=== PATIENT | male | born 1955 | race Caucasian/White ===

== ENCOUNTER 2024-08-29 08:04 | Emergency (ER) | payer OTHER ==
[2024-08-29 09:40] LABS: Absolute Lymphocytes (CBC) 0.6 K/uL (0.7-4.9); Absolute Monocytes 0.8 K/uL (0.1-1.3); Absolute Neutrophil 13.3 K/uL (1.8-8.0); Eosinophils % 0.2 % (0-4.4); Hematocrit 47.3 % (39.6-49.0); Hemoglobin 15.2 g/dL (13.6-17.9); MCV 84.2 fL (80-100); MPV 7.7 fL (7.6-11.3); Monocytes % 5.5 % (3.3-12.3); Neutrophils % 90.3 % (41.7-73.7); Platelets 200 thou/uL (152-406); RBC Red Blood Cell Count 5.62 M/uL (4.33-5.43); Red Cell Distribution Width 15.8 % (12.1-15.2)
[2024-08-29 09:48] LABS: SARS-CoV-2 Antigen CONTROL BLUE LINE VIS/BG OK; SARS-CoV-2 Antigen Rapid Res Negative (Negative)
[2024-08-29 09:54] LABS: Albumin 3.7 g/dL (3.4-5.0); Albumin/Globulin Ratio 0.8 (1.1-1.8); Anion Gap 10.2 mEq/L (5.0-15.0); Bilirubin Total 0.7 mg/dL (0.2-1.0); Globulin 4.4 g/dL (2.3-3.5); Potassium 4.2 mEq/L (3.5-5.1); Protein, Total 8.1 g/dL (6.4-8.2)
--- NOTE | 2024-08-29 10:09 | RAD REPORT ---
EXAM: Chest Single View HISTORY: COUGH COMPARISON: None. FINDINGS: LUNGS/PLEURA: The lungs are clear. No pleural effusions or pneumothorax. No pulmonary edema. MEDIASTINUM: The mediastinal silhouette is within normal limits. CARDIAC: The cardiac silhouette is within normal limits. UPPER ABDOMEN: No significant abnormality. BONES: No acute fracture. LINES/TUBES/OTHER: N/A IMPRESSION: No evidence of acute cardiopulmonary disease.
[2024-08-29] MEDS ORDERED: ONDANSETRON 4 MG/2 ML VIAL ONE (10:47)
[2024-08-29] MEDS ORDERED: NA CHLORIDE 0.9% 1,000 ML ONE (10:48)
[2024-08-29 10:54] LABS: Band Neutrophils 5 % (0-1); Blood Morphology Comment NOT SEEN (NOT SEEN); Differential Total Cells Count 100; Lymphocytes 4 % (15-42); Monocytes 9 % (0-10); Platelet Estimate ADEQ; Segmented Neutrophils 82 % (40-80)
--- NOTE | 2024-08-29 11:09 | RAD REPORT ---
EXAMINATION: CT ABDOMEN AND PELVIS WITH CONTRAST CLINICAL INDICATION: Male, 69 years old.pain TECHNIQUE: CT abdomen and pelvis was performed, after the administration of IV contrast, as [facility]. Axial, sagittal and coronal reconstructions were obtained. One or more of the following dose reduction techniques were used: Automated exposure control, adjustment of the mA and/o r kV according to patient size, and/or iterative reconstruction. Unless otherwise specified, incidental findings do not require dedicated imaging follow-up. [id number]. COMPARISON: No prior exam. FINDINGS: LOWER CHEST: The visualized lung bases are clear. LIVER: Normal in size and contour. No focal lesion. GALLBLADDER/BILE DUCT: Cholecystomy. Pneumobilia present. The common bile duct enhances.? PANCREAS: No significant abnormality. SPLEEN: Normal size. No focal lesion. ADRENALS: 15 mm indeterminate right adrenal nodule. Adrenal Incidental Indeterminate, CT W/C, > 1 - 2 cm, < 130 HU, Homogeneous: Contrast portal venous phase CT, Incidental Indeterminate Adrenal Mass > 1 - 2 cm, < 130 HU, Homogeneous: Probable benign adenoma. Recommend 1 year follow up adrenal washou t CT. If stable for > 1 year, no further f/u imaging. These guidelines do not apply to patients younger than 18 years, patients with cancer, and patients w ith any clinical suspicion of a functioning adrenal lesion. Reference: JACR 2017 Apr; 14(8):1038-44, JCAT 2016 Nov-Dec; 40(2):194-200 KIDNEYS AND URETERS: 2.8 cm right lower pole renal lesion which is slightly lobular. It has Hounsfiel d units just above that of simple fluid. Other too small to characterize renal lesions are noted. GASTROINTESTINAL TRACT: Bowel containing right lateral ventral hernia. No bowel obstruction. There is fluid and mild wall thickening and enhancement of the colon which may reflect a mild enterocolitis. No bowel obstruction. Scattered colonic diverticula. No diverticulitis. PERITONEUM: No ascites. Fat-containing ventral hernias. LYMPH NODES: No lymphadenopathy. 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 URINARY BLADDER: Normal contour. REPRODUCTIVE ORGANS: No pathologic process MUSCULOSKELETAL: No acute or suspicious osseous abnormality. Grade 1 anterolisthesis of L4 and L5 wit h pars defects. Trace retrolisthesis of L5 on S1. ADDITIONAL FINDINGS: None. IMPRESSION: 1. Pneumobilia with enhancement of the common bile duct. The patient has had a prior cholecystomy. Th is could be from a prior sphincterotomy. Cholangitis is another consideration. Recommend clinical correlation and correlation with patient history. 2. Mild colitis suspected. 3. Incidentally identified right adrenal nodule. See above. 4. Indeterminate right lower pole renal lesion. Nonemergent renal ultrasound suggested for further ev aluation.
[2024-08-29] MEDS ORDERED: NA CHLORIDE 0.9% 100 ML ONE (11:21)
[2024-08-29] MEDS ORDERED: PIPERACIL/TAZO 3.375 GM VIAL IV ONE (11:22)
--- NOTE | 2024-08-29 11:53 | ER ---
Nurse's Notes [facility] Name: Marlon Ta Age: 69 yrs Sex: Male : 1955 Arrival Date: 08/29/2024 Time: 08:04 Bed 2 Private MD: Diagnosis: Toxic gastroenteritis and colitis;Sepsis, unspecified organism;History of Liver Transplant 2018;Pneumobilia Presentation: 08/29 08:26 Chief complaint: Patient states: body aches with nausea, vomiting, diarrhea since last aa5 night. Risk Assessment: Do you want to hurt yourself or someone else? Patient reports no desire to harm self or others. Onset of symptoms was August 2024. 08:26 Acuity: RON 3 aa5 08:26 Method Of Arrival: Ambulatory aa5 08:26 Coronavirus screen: diarrhea, vomiting. Ebola Screen: [facility] denies [facility] to an [facility] in the 21 days before illness onset. Initial Sepsis Screen: Does the patient meet any 2 criteria? HR > 90 bpm. Does the patient have a suspected source of infection? No. Patient's initial sepsis screen is negative. Historical: - Allergies: 08:24 No Known Allergies; aa5 - PMHx: 08:24 Liver transplant January 2018; aa5 08:24 Depressive disorder; Hypertensive disorder; aa5 - Immunization history:: Adult Immunizations unknown. - Infectious Disease History:: Denies. - Social history:: Smoking status: Patient/guardian denies using tobacco. Screenin:09 [facility] ED Fall Risk Assessment (Adult) History of falling in the last 3 months, ap3 including since admission No falls in past 3 months (0 pts) Confusion or Disorientation No (0 pts) Intoxicated or Sedated No (0 pts) Impaired Gait No (0 pts) Mobility Assist Device Used No (0 pt) Altered Elimination No (0 pt) Score/Fall Risk Level 0 - 2 = Low Risk Oriented to surroundings, Maintained a safe environment, Educated pt \T\ family on fall prevention, incl call for assistance when getting out of bed, Assessed \T\ reinforced patient's understanding of fall precautions, Hourly rounding (assess needs \T\ fall precautionary measures) done, Used ambulatory aids as needed (educated on \T\ assisted with), Used gait belt as appropriate. Abuse screen: Denies threats or abuse. Nutritional screening: No deficits noted. Tuberculosis screening: No symptoms or risk factors identified. Assessment: 11:09 General: Appears ill, Behavior is calm, cooperative, appropriate for age, Reports ap3 chills for fever for feeling ill for. Pain: Denies pain. Neuro: Level of Consciousness is awake, alert, obeys commands, Oriented to person, place, time, situation, Appropriate for age. Cardiovascular: Patient's skin is warm and dry. Respiratory: Airway is patent Respiratory effort is even, unlabored, Respiratory pattern is regular, symmetrical. GI: Reports diarrhea, nausea, vomiting. 12:30 Reassessment: No changes from previously documented assessment. Patient and/or family ap3 updated on plan of care and expected duration. Pain level reassessed. 13:42 Reassessment: No changes from previously documented assessment. Patient and/or family ap3 updated on plan of care and expected duration. Pain level reassessed. 14:36 General: attempted to call report to [facility], was asked to return call in approx 20 ap3 minutes as the room has not been cleaned yet. 15:33 General: Appears comfortable, Behavior is calm, cooperative, appropriate for age. ap3 Neuro: Level of Consciousness is awake, alert, obeys commands, Oriented to person, place, time, situation, Appropriate for age. Cardiovascular: Patient's skin is warm and dry. Respiratory: Airway is patent Respiratory effort is even, unlabored, Respiratory pattern is regular, symmetrical. 15:45 Reassessment: EMS AT B/S FOR TRANSPORT. bp Vital Signs: 08:26 BP 135 / 86; Pulse 92; Resp 19 S; Temp 98.2(TE); Pulse Ox 95% on R/A; Weight 107.95 kg aa5 (R); Height 5 ft. 11 in. (R); 11:08 BP 144 / 69; Pulse 93; Resp 18; Pulse Ox 96% on R/A; ap3 14:58 Pulse 91; Pulse Ox 93% on 2 lpm NC; ap3 15:45 BP 148 / 75; Pulse 89; Resp 16; Pulse Ox 97% ; bp 08:26 Body Mass Index 33.19 (107.95 kg, 180.34 cm) aa5 ED Course: 08:11 Patient arrived in ED. mg5 08:24 Arm band placed on. aa5 08:26 Triage completed. aa5 09:00 Doan, Abebe, MD is Attending Physician. ec2 09:29 SARS RAPID Sent. bc6 09:29 Influenza Screen (a \T\ B) Sent. bc6 : CBC with Diff Sent. bc6 09: CMP Sent. bc6 09: Lipase Sent. bc6 :29 Initial lab(s) drawn, by me, sent to lab. COVID swab sent to lab. Flu and/or RSV swab bc6 sent to lab. Inserted saline lock: 20 gauge in left antecubital area, using aseptic technique. Blood collected. Flushed with 10 mL NS. 09:46 CXR XRAY In Process Unspecified. EDMS 10:01 Young Owens, RN is Primary Nurse. bp 10:18 Radiology exam delayed due to pt not in lobby or in room 2. Told Fidelia to call when he sj is found. 10:56 Abdomen In Process Unspecified. EDMS 11:10 Patient has correct armband on for positive identification. Bed in low position. Call ap3 light in reach. Side rails up X2. Adult w/ patient. Provided Education on: call light education. Pulse ox on. NIBP on. 11:36 Repeat lab(s) drawn. by me, sent to lab. First set of blood cultures drawn by me, bp Second set of blood cultures drawn by me. 12:27 initiated transfer to [facility]. bd 12:50 doc to doc. bd 14:24 pt accepted in transfer to [facility] rm [address] redman admin approval given by Gardenia Vega rn. 15:23 report given to RICO Tam at [facility]. ap3 15:23 No provider procedures requiring assistance completed. ap3 16:10 Patient transferred, IV remains in place. ap3 Administered Medications: 09:19 CANCELLED (Physician Discretion): TORadol - [id number] mg IVP once ec2 11:05 Drug: NS 0.9% IV 1000 ml IV at 1 bolus Per protocol; to be given as a bolus over 60 ap3 minutes Route: IV; Rate: 1 bolus; Site: left antecubital; 12:05 Follow up: IV Status: Completed infusion ap3 11:08 Drug: Ondansetron IVP 4 mg IVP once; over 2 minutes Route: IVP; Site: left antecubital; ap3 14:56 Follow up: Response: No adverse reaction ap3 11:36 Drug: Piperacillin-Tazobactam IVPB 3.375 grams IVPB once over 60 mins; (mix in NS 100 bp mL) Route: IVPB; Infused Over: 60 mins; Site: left antecubital; 14:56 Follow up: IV Status: Completed infusion ap3 12:09 Drug: metoCLOPramide IVP 10 mg IVP once; over 1 to 2 minutes Route: IVP; Site: left ap3 antecubital; 14:55 Follow up: Response: No adverse reaction ap3 12:09 Drug: diphenhydrAMINE IVP 25 mg IVP once Route: IVP; Site: left antecubital; ap3 14:55 Follow up: Response: No adverse reaction ap3 Medication: 16:10 VIS not applicable for this client. ap3 Outcome: 11:52 ER care complete, transfer ordered by . ec2 16:10 Transferred by ground EMS to [facility], [facility], ap3 16:10 Condition: good 16:10 Discharge instructions given to patient, Instructed on the need for transfer, Demonstrated understanding of instructions, 16:10 Patient left the ED. ap3 Addendum: 09/02/2024 09:26 Addendum: Culture Results: Positive blood culture. Phone call Attempt #1 Faxed to [facility]. adonis Signatures: Dispatcher [employer] EDMS Susana Beyer Susan sj Calderon, Audri, RN RN aa5 Britany Tate RN RN hb Peltier, Brian, RN RN bp Prokisch, Amanda, RN RN ap3 Alea Jimenez [facility] Jeanie Armendariz [facility] Abebe Doan MD MD ec2 Corrections: (The following items were deleted from the chart) 08/29 08:25 08:24 Allergies: No Known Allergies; aa5 aa5
--- NOTE | 2024-08-29 11:54 | EDPHYS ---
Physician Documentation [facility] Name: Marlon Ta Age: 69 yrs Sex: Male : 1955 Arrival Date: 08/29/2024 Time: 08:04 Bed 2 Private MD: ED Physician Abebe Doan HPI: 08/29 09:19 This 69 yrs old Male presents to ER via Ambulatory with complaints of Fever, Diarrhea. ec2 09:19 Patient arrives today for evaluation of subjective fevers along with diarrhea and ec2 nausea. Patient reports that he has been having worsening symptoms. Patient reports no significant abdominal pain. Reports that he has a history of liver transplantation approximately 6 years ago. Patient reports otherwise he is on immunosuppressive agents. No urinary complaints.. Historical: - Allergies: 08:24 No Known Allergies; aa5 - PMHx: 08:24 Liver transplant January 2018; aa5 08:24 Depressive disorder; Hypertensive disorder; aa5 - Immunization history:: Adult Immunizations unknown. - Infectious Disease History:: Denies. - Social history:: Smoking status: Patient/guardian denies using tobacco. ROS: 09:19 Constitutional: as per hpi ec2 Exam: 09:19 Constitutional: GEN: NAD Head: atraumatic Eyes: EOMI Ears: External ears are ec2 normal. CV: regular rate LUNGS: no respiratory distress ABD: non-distended, soft, nontender, not guarding, not rigid SKIN: no evidence of rashes MSK: no evidence of trauma Vital Signs: 08:26 BP 135 / 86; Pulse 92; Resp 19 S; Temp 98.2(TE); Pulse Ox 95% on R/A; Weight 107.95 kg aa5 (R); Height 5 ft. 11 in. (R); 11:08 BP 144 / 69; Pulse 93; Resp 18; Pulse Ox 96% on R/A; ap3 14:58 Pulse 91; Pulse Ox 93% on 2 lpm NC; ap3 15:45 BP 148 / 75; Pulse 89; Resp 16; Pulse Ox 97% ; bp 08:26 Body Mass Index 33.19 (107.95 kg, 180.34 cm) aa5 MDM: 09:02 Medical Screening Exam initiated ec2 09:19 Data reviewed: vital signs, nurses notes. ED course: Patient arrives today for ec2 evaluation of fever and diarrhea. Examination is remarkable for well-appearing nontoxic dividual's otherwise in no acute distress with reassuring vital signs. Will obtain lab work, CT imaging and give the patient crystalloid and Zofran.. 09:57 ED course: CBC shows leukocytosis. Metabolic profile is unrevealing, reassuring liver ec2 enzymes. Flu and COVID testing negative.. 11:49 ED course: CT imaging shows colitis, some pneumobilia noted, patient with history of ec2 previous manipulation of the CBD with previous stenting and previous cholecystectomy. Patient without any tenderness in the right upper quadrant. I will give the patient Zosyn for the colitis given the patient's immunosuppressive status.. 11:53 ED course: Given history of liver transplantation will transfer to another facility [facility] that has hepatology available. Patient received his liver transplant and [facility] [place].. 11:57 ED course: EKG independently reviewed and interpreted by me, shows normal sinus rhythm, ec2 rate of 80, no acute ST segment elevations, intervals are nonactionable.. 12:30 ED course: I discussed the case with [facility], hepatology who agrees to ec2 consult. Will discuss with hospitalist as well.. 13:17 ED course: Sepsis reassessment complete.. ec2 08/29 09:02 Order name: CBC with Diff; Complete Time: 10:55 ec2 08/29 09:02 Order name: CMP; Complete Time: 09:56 ec2 08/29 09:02 Order name: Lipase; Complete Time: 09:56 ec2 08/29 09:02 Order name: Influenza Screen (a \T\ B); Complete Time: 09:56 ec2 08/29 09:02 Order name: SARS RAPID; Complete Time: 09:56 ec2 08/29 09:43 Order name: Manual Differential; Complete Time: 10:55 EDMS 08/29 11:14 Order name: Blood Culture Adult (2) ec2 08/29 11:14 Order name: Lactate w/ 2H reflex if indic.; Complete Time: 12:27 ec2 08/29 11:14 Order name: Protime (+inr); Complete Time: 12:27 ec2 08/29 11:14 Order name: Ptt, Activated; Complete Time: 12:27 ec2 08/29 09:18 Order name: CXR XRAY; Complete Time: 10:25 ec2 08/29 09:48 Order name: Abdomen ; Complete Time: 11:10 EDMS 08/29 11:14 Order name: EKG; Complete Time: 11:15 ec2 08/29 09:02 Order name: IV Saline Lock; Complete Time: 09:29 ec2 08/29 09:02 Order name: Labs collected and sent; Complete Time: 09:29 ec2 08/29 11:14 Order name: Accucheck; Complete Time: 11:42 ec2 08/29 11:14 Order name: Cardiac monitoring; Complete Time: 11:42 ec2 08/29 11:14 Order name: EKG - Nurse/Tech; Complete Time: 12:09 ec2 08/29 11:14 Order name: IV Saline Lock - Large Bore; Complete Time: 11:42 ec2 08/29 11:14 Order name: O2 Per Protocol; Complete Time: 11:42 ec2 08/29 11:14 Order name: O2 Sat Monitoring; Complete Time: 11:42 ec2 08/29 11:14 Order name: Vital Signs; Complete Time: 11:42 ec2 Administered Medications: 09:19 CANCELLED (Physician Discretion): TORadol - [id number] mg IVP once ec2 11:05 Drug: NS 0.9% IV 1000 ml IV at 1 bolus Per protocol; to be given as a bolus over 60 ap3 minutes Route: IV; Rate: 1 bolus; Site: left antecubital; 12:05 Follow up: IV Status: Completed infusion ap3 11:08 Drug: Ondansetron IVP 4 mg IVP once; over 2 minutes Route: IVP; Site: left antecubital; ap3 14:56 Follow up: Response: No adverse reaction ap3 11:36 Drug: Piperacillin-Tazobactam IVPB 3.375 grams IVPB once over 60 mins; (mix in NS 100 bp mL) Route: IVPB; Infused Over: 60 mins; Site: left antecubital; 14:56 Follow up: IV Status: Completed infusion ap3 12:09 Drug: metoCLOPramide IVP 10 mg IVP once; over 1 to 2 minutes Route: IVP; Site: left ap3 antecubital; 14:55 Follow up: Response: No adverse reaction ap3 12:09 Drug: diphenhydrAMINE IVP 25 mg IVP once Route: IVP; Site: left antecubital; ap3 14:55 Follow up: Response: No adverse reaction ap3 Disposition Summary: 08/29/24 11:52 Transfer Ordered Notes: Transfer Location: [facility] ec2 Reason: Higher level of care ec2 Condition: Stable ec2 Problem: new ec2 Symptoms: have improved ec2 Accepting Physician: transferring doc(08/29/24 16:10) ap3 Diagnosis - Toxic gastroenteritis and colitis ec2 - Sepsis, unspecified organism ec2 - History of Liver Transplant 2018 ec2 - Pneumobilia ec2 Forms: - Medication Reconciliation Form ec2 - SBAR form ec2 Critical care time excluding procedures: 12:30 Critical care time: Bedside Care: 30 minutes, Consultation: 10 minutes. Total time: 40 ec2 minutes Signatures: Dispatcher [employer] Jeniffer Hutchinson RN RN aa5 Young Owens RN RN bp Prokisch, Amanda, RN RN ap3 Abebe Doan MD MD ec2 Corrections: (The following items were deleted from the chart) 08:25 08:24 Allergies: No Known Allergies; aa5 aa5 09:19 09:02 TORadol - Ketorolac IVP 15 mg IVP once ordered. ec2 ec2 10:13 09:03 Abdomen Pelvis W Con+CT.RAD.BRZ ordered. EDMN EDMN 11:53 11:52 transferring doc ec2 ec2 11:55 11:53 transferring doc ec2 ec2 16:10 11:55 transferring doc ec2 ap3
[2024-08-29] MEDS ORDERED: METOCLOPRAMIDE 10 MG/2mL INJ ONE (12:00)
[2024-08-29] MEDS ORDERED: DIPHENHYDRAMINE 50 MG/ML VIAL ONE (12:00)
[2024-08-29 12:13] LABS: PT Prothrombin Time 12.9 SECONDS (9.4-12.5); PTT, Activated Partial Thromb 27.9 SECONDS (24.3-36.9); Protime INR 1.16
[2024-08-29 20:31] VITALS: TEMP 98.2
[2024-08-29 20:43] VITALS: BP 148/75; O2SAT 97
== END 2024-08-29 16:10 | disposition short-term general hospital (02) ==
LOC: ER 08:04
DX: K52.1 Toxic gastroenteritis and colitis (principal); A41.9 Sepsis, unspecified organism; J18.9 Pneumonia, unspecified organism; Z94.4 Liver transplant status; I10 Essential (primary) hypertension; Z11.52 Encounter for screening for COVID-19
CPT/HCPCS: 96365; 96361; 87040 ×2; 85025; 36415; 87205; 85610; 83605; 85730; 87077; 87186; 83690; 80053; 87804 ×2; 74177; 71045; 96375; 99285; 96366; 87811; Q9967; J2765; J1200; J2543; J2405; J7030